=== PATIENT | male | born 1970 | race Caucasian/White ===

== ENCOUNTER → 2018-07-20 14:03 | Outpatient (CLI) | payer BC, SELFPAY | PROVIDERS: Family Provider Family Medicine; PCP Family Medicine; Visit Provider Urology | DX: N50.811 Right testicular pain (principal) | CPT/HCPCS: 76870; 93976 ==

== ENCOUNTER 2023-08-23 12:26 | Emergency (ER) | payer BC, SELFPAY ==
[2023-08-23 12:27] VITALS: BP 149/100; PULSE 83; RESP 18; TEMP 36.7; O2SAT 100; BMI 29.3
--- NOTE | 2023-08-23 12:49 | EX.ED.UPPERE ---
HPI History of Present Illness Chief Complaint: Upper Extremity Injury Informant: patient Narrative Narrative: [id number] male woke up with pain, redness, swelling left elbow this morning for the last 4 to 5 hours. No systemic symptoms, fevers, chills. States he had this before and it was MRSA. He went to urgent care first but was referred here to the ER. He denies doing a lot of resting his elbows on hard surfaces that he can recall denies any injury that he knows of. PFSH PFSH Medical History no medical history no medical history Home Medications cephalexin 500 mg capsule 500 mg PO Q6 #40 caps 08/23/23 [Rx Last Taken Unknown] sulfamethoxazole 800 mg-trimethoprim 160 mg tablet 1 tab PO BID #20 tabs 08/23/23 [Rx Last Taken Unknown] Allergy/AdvReac Type Severity Reaction Status Date / Time No Known Allergies Allergy Verified 06/15/17 11:31 Social History Smoking Status: Never smoker ROS ROS ED Constitutional Constitutional ED: Denies chills or fever(s) Musculoskeletal Musculoskeletal: Reports extremity pain; Denies neck pain Integumentary Reports as per HPI and rash; Denies Abrasions or wounds Neurologic Neurologic: Denies paresthesias or weakness EXAM Physical Exam Const Vital Signs: 08/23/23 12:27 Temperature 98.1 F Temperature Source Temporal Pulse Rate 83 Respiratory Rate 18 Blood Pressure 149/100 H Blood Pressure Mean 116 Pulse Ox 100 Oxygen Delivery Method Room Air Positive well nourished and well developed General Appearance ED: well developed and NAD Neck full ROM and supple Back/Spine normal ROM and normal to inspection Extremity full ROM Extremity Narrative: Tender blanching warm erythema over the left olecranon, pain radiates down the ulnar aspect of the forearm but there is no erythema, induration, lesions or color abnormality here. The left olecranon bursa seems to be a little swollen but not boggy and fluctuant. Full range of motion, pt indicates that it hurts to fully extend. Neuro oriented x3, no focal motor deficits and no sensory deficits noted Sensorium / Orientation: alert Psych thought process normal Mood & Affect: anxious and tearful Skin no wounds Rashes: no rashes MDM MDM MDM Narrative Medical decision making narrative: This is consistent with left olecranon bursitis, inflammatory etiologies versus infectious etiologies in the differential diagnosis. This does not appear to necessarily be gouty. Since the patient has a history of MRSA here, I aspirated a very scant amount of fluid out of the bursa, and sent it for a culture, I do not have enough to obtain crystal analysis, but I will treat him empirically for MRSA since he has no recent predisposition to inflammatory bursitis. I do not think he is toxic or needs blood work or IV antibiotics, but I did give him a dose of IM Ancef which is equivalent to IV, as well as starting him on Bactrim and will send him home on prescriptions for Bactrim and cephalexin. We discussed reasons to follow-up and reasons to return he is comfortable with that plan. Procedures Other Procedures Procedure(s): Left olecranon bursa aspiration: Sterile prep with isopropanol, locally anesthetized with 1 cc of 1% lidocaine with epinephrine, reprepped with chlorhexidine, and from a lateral approach inserted a 21-gauge needle and was able to aspirate a scant amount of nonbloody straw-colored bursal fluid, just enough to send for a culture hopefully, no other testing likely to be able to be performed since only a dropper to. Tolerated well no complications. Discharge Plan Triage Chief Complaint: Upper Extremity Injury ED Provider: Paresh Lanier Dx/Rx/DC Orders Clinical Impression: Olecranon bursitis of left elbow Instructions: ED Bursitis Elbow Olecranon Prescriptions: Continued sulfamethoxazole-trimethoprim 1 TABLET tablet 1 tab PO BID Qty: 20 0RF cephalexin 500 MG capsule 500 mg PO Q6 Qty: 40 0RF Primary Care Provider: Dequan Holliday Referrals: Dequan Holliday MD [Primary Care Provider] - Altaf Argueta DO [Med Staff - Active Staff] - 3-5 Days if not improving Activity Restrictions/Additional Instructions: You are prescribed 2 antibiotics to cover for MRSA as well as other bacterial causes that are not MRSA. Being on 2 antibiotics increases your chances for diarrhea and C. difficile, in order to try to prevent these, either eat yogurt or take probiotics daily while on antibiotic therapy. If the redness and swelling are significantly worse after 48 hours, you may return to the ER to see if aspiration is necessary again. Do not be surprised if worsening occurs slightly in the first 24 hours while antibiotics are starting to work. Disposition Disposition: Home, Self Care
[2023-08-23] MEDS: Smz/Tmp Ds Tablet 1 TABLET PO (13:05)
[2023-08-23 13:56] VITALS: BP 139/84; PULSE 88; RESP 16; O2SAT 97
[2023-08-23] MEDS: Cefazolin 1 GM/5 ML Vial IM (13:56)
== END 2023-08-23 13:57 | disposition home or self-care (01) ==
LOC: ED 13:39
PROVIDERS: Emergency Provider Emergency Medicine; PCP Family Medicine; Visit Provider Emergency Medicine
DX: M70.22 Olecranon bursitis, left elbow (principal); Z86.14 Personal history of Methicillin resistant Staphylococcus aureus infection
CPT/HCPCS: 20605; 20610; 87070; 87077; 87186; 87205; 96372; 99283